=== PATIENT | male | born 1995 | race Caucasian/White ===

== ENCOUNTER 2017-01-15 19:40 | Emergency (ER) | payer SELFPAY ==
[~2017-01-15] VITALS: Ht 170.2 cm; Wt 66.7 kg
[2017-01-15 22:00] VITALS: BP 111/68
== END 2017-01-15 22:00 | disposition home or self-care (01) ==
LOC: ED 19:40
DX: K04.7 Periapical abscess without sinus (principal)
CPT/HCPCS: J0561